=== PATIENT | female | born 1970 | race Hispanic/Latino ===

== ENCOUNTER 2017-04-24 15:58 | Observation (INO) | payer MEDICAID ==
[2017-04-24 16:54] VITALS: BMI 26.0
[2017-04-24] MEDS ORDERED: Morphine 4 mg/ml ISec IVP STA (17:09)
[2017-04-24] MEDS ORDERED: Sodium Chloride 0.9% 1,000 ML IV STA (17:10)
--- NOTE | 2017-04-24 17:41 | ED PDOC ---
Arrival/HPI - General Chief Complaint: Dizziness/Lightheaded Time Seen by Provider: 04/24/17 16:32 Historian: Patient, Family, EMS - History of Present Illness Narrative History of Present Illness (Text): 04/24/17 17:05 Karma Delgado is a 46 year old female, whose past medical history includes breast cancer, vulva cancer, rectal cancer (all in remission), post multiple surgery with chronic sciatica, as well as intermediate paresthesia in her upper and lower extremities, is brought in to the Emergency department by EMS complaining of dizziness. She reports that she was walking with her around 14:30 today when she suddenly felt dizzy as if she was about to pass out. She then felt a tingling sensation in all her extremities bilaterally, along with chest discomfort later on. EMS reports when they arrived the patient was hyperventilating. Patient notes that currently her right side feels normal, but still feels a tingling sensation on her left, which she also associates with pain. She also reports feeling mild nausea and mild shortness of breath. Patient denies chest pain, headache, fever, chills, cough, back pain, vomiting, diarrhea, abdominal pain, or other complaints. Time/Duration: 1-3 hours Symptom Onset: Sudden Symptom Course: Other (improvement with right side. Unchanged with left side. ) Activities at Onset: Light Modifying Factors (Text): None Context: Walking Associated Symptoms (Text): tingling in all extremities bilaterally, mild nausea, and mild shortness of breath Past Medical History - Provider Review Nursing Documentation Reviewed: Yes - Past History Past History: No Previous - Infectious Disease Hx of Infectious Diseases: None - Tetanus Immunization Tetanus Immunization: Unknown - Cardiac Hx Cardiac Disorders: No - Pulmonary Hx Respiratory Disorders: No - Neurological Hx Neurological Disorder: No - HEENT Hx HEENT Disorder: No - Renal Hx Renal Disorder: No - Endocrine/Metabolic Hx Endocrine Disorders: No - Hematological/Oncological Hx Blood Disorders: Yes Hx Blood Transfusions: No Hx Blood Transfusion Reaction: No Hx Cancer: Yes (breast, vaginal, rectal) - Integumentary Hx Dermatological Disorder: No - Musculoskeletal/Rheumatological Hx Musculoskeletal Disorders: Yes Other/Comment: L LEG PAIN - Gastrointestinal Hx Gastrointestinal Disorders: No - Genitourinary/Gynecological Hx Genitourinary Disorders: Yes Other/Comment: VAGINAL/RECTAL CA - Psychiatric Hx Psychophysiologic Disorder: Yes Hx Anxiety: Yes Hx Depression: Yes Hx Emotional Abuse: No Hx Physical Abuse: No Hx Substance Use: Yes (CANNABIS) - Surgical History Hx Appendectomy: Yes Hx Breast Biopsy: Yes (left breast mastectomy) Hx Mastectomy: Yes (L) Hx Orthopedic Surgery: Yes (L FOOT) Other/Comment: VAGINAL/RECTAL R/T CA - Anesthesia Hx Anesthesia: Yes - Suicidal Assessment Feels Threatened In Home Enviroment: No Family/Social History - Physician Review Nursing Documentation Reviewed: Yes Family/Social History: Unknown Family HX Smoking Status: Heavy Smoker > 10 Cigarettes Daily Hx Alcohol Use: Yes (ON OCCASION) Hx Substance Use: Yes (CANNABIS) Substance used: MARIJUANA Hx Substance Use Treatment: No Allergies/Home Meds Allergies/Adverse Reactions: Allergies iodine Allergy (Verified 12/19/15 18:30) ITCHING ibuprofen [From Motrin] Adverse Reaction (Verified 12/19/15 18:30) VOMITING Home Medications: Home Meds Medication Instructions Recorded Confirmed Alprazolam [Xanax] 1 mg PO Q6 10/15/12 04/24/17 Cyclobenzaprine [Flexeril] 10 mg PRN 04/24/17 Escitalopram [Lexapro] 20 mg DAILY 04/24/17 04/24/17 buPROPion [Wellbutrin] 50 mg BID 04/24/17 04/24/17 traZODone [Desyrel] 100 mg DAILY 04/24/17 04/24/17 Review of Systems - Review of Systems Constitutional: absent: Fevers Eyes: Normal ENT: Normal Respiratory: SOB (mild). absent: Cough Cardiovascular: absent: Chest Pain Gastrointestinal: Nausea (mild). absent: Abdominal Pain, Diarrhea Genitourinary Female: Normal Musculoskeletal: Normal. absent: Back Pain Skin: Normal Neurological: Dizziness. absent: Headache Endocrine: Normal Hemo/Lymphatic: Normal Psychiatric: Normal Physical Exam Vital Signs Reviewed: Yes Vital Signs Temp Pulse Resp BP Pulse Ox 04/24/17 16:08 97.6 F 62 20 121/71 100 Temperature: Afebrile Blood Pressure: Normal Pulse: Regular Respiratory Rate: Normal Appearance: Positive for: Non-Toxic Pain Distress: None Mental Status: Positive for: Alert and Oriented X 3 - Systems Exam Head: Present: Atraumatic, Normocephalic Pupils: Present: PERRL Extroacular Muscles: Present: EOMI Conjunctiva: Present: Normal Mouth: Present: Moist Mucous Membranes Pharnyx: Present: Normal. No: ERYTHEMA, EXUDATE Neck: Present: Normal Range of Motion Respiratory/Chest: Present: Clear to Auscultation, Good Air Exchange. No: Respiratory Distress, Accessory Muscle Use Cardiovascular: Present: Regular Rate and Rhythm, Normal S1, S2. No: Murmurs Abdomen: Present: Normal Bowel Sounds. No: Tenderness, Distention, Peritoneal Signs Upper Extremity: No: Cyanosis, Edema Lower Extremity: Present: Normal Inspection. No: Edema Neurological: Present: GCS=15, CN II-XII Intact, Speech Normal, Other (LLE 4/5 strength; LUE with drift but reported as baseline per patient.) Skin: Present: Warm, Dry, Normal Color. No: Rashes Psychiatric: Present: Alert, Oriented x 3, Normal Insight, Normal Concentration Medical Decision Making ED Course and Treatment: 04/24/17 17: Impression: 46 year old female with dizziness. Differential Diagnosis included but are not limited to: near syncopal episode vs panic vs dehydration vs acs vs electrolyte abnormality Plan: -- EKG -- CAT scan of Head without contrast -- Chest X-ray -- Labs -- Urinalysis -- Morphine, Xanax, and Sodium Chloride -- Reassess and disposition Progress Notes: EKG: Ordered, reviewed, and independently interpreted the EKG. Rate : 50 BPM Rhythm : Sinus bradycardia Interpretation : Inverted T waves in V2 and V3. Normal intervals. Normal axis compared to previous EKG. Comparison : 01/06/2016 04/24/17 18:[address] without contrast: Creator : Amado Espinoza MD COMPARISON: 10/31/2012 FINDINGS: HEMORRHAGE: No intracranial hemorrhage. BRAIN: No mass effect or edema. No atrophy or chronic microvascular ischemic changes. VENTRICLES: Unremarkable. No hydrocephalus. CALVARIUM: Unremarkable. PARANASAL SINUSES: Unremarkable as visualized. No significant inflammatory changes. MASTOID AIR CELLS: Unremarkable as visualized. No inflammatory changes. OTHER FINDINGS: None. IMPRESSION: No acute intracranial abnormalities. No significant findings to account for the clinical presentation. No significant interval change compared to the prior examination(s). 04/24/17 19:00 Chest X-ray: Creator : PAU TOSCANO MD COMPARISON: 12/19/2015. FINDINGS: LUNGS: The lungs are well inflated and clear PE PLEURA: No pneumothorax or pleural fluid seen. CARDIOVASCULAR: Normal. OSSEOUS STRUCTURES: No significant abnormalities. VISUALIZED UPPER ABDOMEN: Normal. OTHER FINDINGS: There are multiple surgical clips in the left axilla PICC IMPRESSION: No active pulmonary disease. 04/24/17 20:21 Patient with noted history. Neuro exam is baseline, per patient and given original b/L parasthesias, unlikely to be central neuro etiology. Labs are unremarkable but ekg is showing changes. Given cancer history, d-dimer sent and also found to be negative. With EKG changes, patient will need further observation on tele for near syncope. Disucssed with Dr. Molina, who said to place on the hospitalist service. Discussed with Dr. Walls. - Lab Interpretations Lab Results: 04/24/17 18:00 04/24/17 18:00 Lab Results 04/24/17 18:15: Urine Opiates Screen Negative, Urine Methadone Screen Negative, Ur Barbiturates Screen Negative, Ur Phencyclidine Scrn Negative, Ur Amphetamines Screen Negative, U Benzodiazepines Scrn Positive H, U Oth Cocaine Metabols Negative, U Cannabinoids Screen Positive H 04/24/17 18:15: Urine Color Yellow, Urine Appearance Clear, Urine pH 7.0, Ur Specific [place] 1.010, Urine Protein Negative, Urine Glucose (UA) Negative, Urine Ketones Negative, Urine Blood Trace-intact H, Urine Nitrate Negative, Urine Bilirubin Negative, Urine Urobilinogen 0.2, Ur Leukocyte Esterase Negative , Urine RBC 0 - 2, Urine WBC 0 - 2, Ur Epithelial Cells 1 - 3 04/24/17 18:00: Sodium 140, Potassium 3.8, Chloride 103, Carbon Dioxide 26, Anion Gap 15, BUN 9, Creatinine 0.8, Est GFR ( Amer) > 60, Est GFR (Non- Af Amer) > 60, Random Glucose 89, Calcium 10.5, Magnesium 1.7, Total Bilirubin 0.8, AST 27, ALT 23, Alkaline Phosphatase 98, Lactate Dehydrogenase 424, Total Creatine Kinase 68, Troponin I < 0.01, NT-Pro-B Natriuret Pep 149, Total Protein 8.4 H, Albumin 4.7, Globulin 3.7, Albumin/Globulin Ratio 1.3, Lipase 125 04/24/17 18:00: PT 11.3, INR 1.05, APTT 26.0, D-Dimer, Quantitative 0.30 04/24/17 18:00: WBC 7.0, RBC 4.20, Hgb 13.2, Hct 37.8, MCV 90.0, MCH 31.4, MCHC 34.9, RDW 12.5, Plt Count 203, MPV 9.5, Gran % 77.4 H, Lymph % (Auto) 16.0 L, [place] % (Auto) 5.8, Eos % (Auto) 0.7 L, Baso % (Auto) 0.1, Gran # 5.42, Lymph # 1.1 L, [place] # 0.4, Eos # 0.1, Baso # 0.01 I have reviewed the lab results: Yes - RAD Interpretation Radiology Orders: 04/24/17 17:12 Brain [HEAD W/O CONTRAST] [CT] Stat CHEST ONE VIEW [RAD] Stat Top Precipitator Operator: Radiologist - EKG Interpretation Interpreted by ED Physician: Yes Type: 12 lead EKG - Medication Orders Current Medication Orders: Discontinued Medications Alprazolam (Xanax) 1 mg PO ONCE STA PRN Reason: Protocol Stop: 04/24/17 17:11 Last Admin: 04/24/17 18:05 Dose: 1 mg Sodium Chloride (Sodium Chloride 0.9%) 1,000 mls @ 999 mls/hr IV .Q1H1M STA Stop: 04/24/17 18:10 Last Admin: 04/24/17 18:05 Dose: 999 mls/hr Morphine Sulfate (Morphine) 4 mg IVP STAT STA Stop: 04/24/17 17:10 Last Admin: 04/24/17 18:00 Dose: 4 mg Ondansetron HCl (Zofran Inj) 4 mg IVP STAT STA Stop: 04/24/17 17:58 Last Admin: 04/24/17 18:06 Dose: 4 mg Ondansetron HCl (Zofran Inj) Confirm Administered Dose 4 mg .ROUTE .STK-MED ONE Stop: 04/24/17 17:58 Last Admin: 04/24/17 18:07 Dose: - PA / BONDERITE OPERATOR / Resident Statement / has reviewed & agrees with the documentation as recorded. / has examined the patient and agrees with the treatment plan. - Scribe Statement The provider has reviewed the documentation as recorded by the Scribe 04/24/2017 [facility] Provider Scribe Attestation: All medical record entries made by the Scribe were at my direction and personally dictated by me. I have reviewed the chart and agree that the record accurately reflects my personal performance of the history, physical exam, medical decision making, and the department course for this patient. I have also personally directed, reviewed, and agree with the discharge instructions and disposition. Disposition/Present on Arrival - Present on Arrival Any Indicators Present on Arrival: No History of DVT/PE: No History of Uncontrolled Diabetes: No Urinary Catheter: No History of Decub. Ulcer: No History Surgical Site Infection Following: None - Disposition Have Diagnosis and Disposition been Completed?: Yes Diagnosis: Near syncope Disposition: HOSPITALIZED Disposition Time: 19:25 Patient Plan: Observation, Telemetry Condition: FAIR
[2017-04-24 18:21] LABS: ALB/GLOB RATIO 1.3 (1.1-1.8); ALBUMIN 4.7 g/dL (3.0-4.8); ALT/SGPT 23 U/L (7-56); AST/SGOT 27 U/L (15-39); BLOOD UREA NITROGEN 9 mg/dL (7-21); CALCIUM 10.5 mg/dL (8.4-10.5); GFR AFRICAN-AMERICAN > 60; GFR NON-AFRICAN AMERICAN > 60; LIPASE 125 U/L (23-300); MAGNESIUM 1.7 mg/dL (1.7-2.2)
[2017-04-24 18:29] LABS: INR 1.05 (0.93-1.08); PROTHROMBIN TIME 11.3 Seconds (9.9-11.8)
[2017-04-24 18:31] LABS: D DIMER 0.3 mg/L FEU (0-0.50)
[2017-04-24 18:32] LABS: BASO # 0.01 K/mm3 (0.0-2.0); BASO % 0.1 % (0.0-3.0); EOS # 0.1 (0.0-0.7); EOS % 0.7 % (1.5-5.0); GRAN # 5.42 (1.4-6.5); GRAN % 77.4 % (50.0-68.0); HEMOGLOBIN 13.2 gm/dL (12.0-16.0); LYMPH # 1.1 (1.2-3.4); MEAN CORPUSCULAR HEMOGLOBIN 31.4 pg (25.0-35.0); MEAN CORPUSCULAR HGB CONC 34.9 g/dl (31.0-37.0); MEAN PLATELET VOLUME 9.5 fl (7.0-11.0); MONO # 0.4 (0.1-0.6); MONO % 5.8 % (1.0-6.0); PLATELET COUNT 203 10^3/uL (120.0-450.0); RED CELL DISTRIBUTION WIDTH 12.5 % (11.5-14.5)
[2017-04-24 18:33] LABS: B-TYPE NATRIURETIC PEPTIDE 149 pg/mL (0-450)
[2017-04-24 18:37] LABS: TROPONIN I < 0.01 ng/mL
--- NOTE | 2017-04-24 18:41 | CT ---
PROCEDURE: CT HEAD WITHOUT CONTRAST. HISTORY: dizzy, L side parasthesias COMPARISON: 10/31/2012 TECHNIQUE: Axial computed tomography images were obtained through the head/brain without intravenous contrast. Radiation dose: Total exam DLP = 733.34 mGy-cm. This CT exam was performed using one or more of the following dose reduction techniques: Automated exposure control, adjustment of the mA and/or kV according to patient size, and/or use of iterative reconstruction technique. FINDINGS: HEMORRHAGE: No intracranial hemorrhage. BRAIN: No mass effect or edema. No atrophy or chronic microvascular ischemic changes. VENTRICLES: Unremarkable. No hydrocephalus. CALVARIUM: Unremarkable. PARANASAL SINUSES: Unremarkable as visualized. No significant inflammatory changes. MASTOID AIR CELLS: Unremarkable as visualized. No inflammatory changes. OTHER FINDINGS: None. IMPRESSION: No acute intracranial abnormalities. No significant findings to account for the clinical presentation. No significant interval change compared to the prior examination(s).
--- NOTE | 2017-04-24 18:55 | RAD ---
PROCEDURE: CHEST RADIOGRAPH, 1 VIEW HISTORY: Shortness of breath COMPARISON: 12/19/2015. FINDINGS: LUNGS: The lungs are well inflated and clear PE PLEURA: No pneumothorax or pleural fluid seen. CARDIOVASCULAR: Normal. OSSEOUS STRUCTURES: No significant abnormalities. VISUALIZED UPPER ABDOMEN: Normal. OTHER FINDINGS: There are multiple surgical clips in the left axilla PICC IMPRESSION: No active pulmonary disease.
[2017-04-24 18:57] LABS: URINE BILIRUBIN NEGATIVE (NEGATIVE); URINE BLOOD TRACE-INTACT (NEGATIVE); URINE GLUCOSE (UA) NEGATIVE (NEGATIVE); URINE LEUKOCYTE ESTERASE NEGATIVE Leu/uL (NEGATIVE); URINE NITRATE NEGATIVE (NEGATIVE); URINE PROTEIN NEGATIVE mg/dL (<30 mg/dL); URINE UROBILINOGEN 0.2 E.U./dL (<1 E.U./dL)
[2017-04-24 19:07] LABS: URINE APPEARANCE CLEAR (CLEAR); URINE COLOR YELLOW (YELLOW)
[2017-04-24 19:08] LABS: URINE RBC 0 - 2 /hpf (0-2); URINE WBC 0 - 2 /hpf (0-6)
[2017-04-24 19:15] LABS: BARBITURATES, UR NEGATIVE (NEGATIVE); BENZODIAZEPINES, UR POSITIVE (NEGATIVE); OPIATES, UR NEGATIVE (NEGATIVE); PHENCYCLIDINE, UR NEGATIVE (NEGATIVE)
--- NOTE | 2017-04-24 19:58 | CP.PCM.HP ---
<Deon Diaz - Last Filed: 04/25/17 00:01> History of Present Illness - History of Present Illness History of Present Illness: CC: SOB and Dizzy Patient is a 46 year female with a PMHx of breast cancer, vulva cancer , rectal cancer, ovarian cysts, depression, anxiety, and sciatic pain who presents to the ED for evaluation of dizziness which began this afternoon while walking with her with no specific provoking event. Patient states that she felt her surroundings spinning with associated nausea and SOB, which have resolved since onset. She states that she experiences episodes of anxiety induced vertigo and SOB in the past and generally uses her xanax for relief. Patient also admits to intermittent left sided chest pain, which is described as being a pressure and is chronic in nature secondary to radiation. Additionally she experiences right chest pain for the past week which she believes a secondary to a strain after sitting in su at restaurant. Patient also admits to tingling sensation on her bilateral upper and lower extremities during which has resolved since onset. Also states she experienced one bout of nonbloody emesis in ED. Denies fever, chills, abdominal pain, diarrhea, constipation, and urinary symptoms. PMHx: breast cancer, vulva cancer, rectal cancer, ovarian cysts, depression, anxiety, sciatic pain PSHx: appendectomy, L foot tendon repair, L sided mastectomy, vulvolectomy, cervix removed (trachelectomy), 8 laproscopy 2/2 ovarian cyst removal Social Hx: occasional ETOH use, 8-10 cigarette/day for 20 years, marijuana 3x/ week Family Hx: mother- skin cancer, father- brain cancer, brother- Burkitts lymphoma Allergies: IV contrast hives, Motrin Present on Admission - Present on Admission Any Indicators Present on Admission: No Review of Systems - Review of Systems Review of Systems: 12 point review of systems negative except for as indicated in the HPI Past Patient History - Infectious Disease Hx of Infectious Diseases: None - Tetanus Immunizations Tetanus Immunization: Unknown - Past Medical History & Family History Past Medical History?: Yes - Past Social History Smoking Status: Heavy Smoker > 10 Cigarettes Daily - CARDIAC Hx Cardiac Disorders: No - PULMONARY Hx Respiratory Disorders: No - NEUROLOGICAL Hx Neurological Disorder: No - HEENT Hx HEENT Problems: No - RENAL Hx Chronic Kidney Disease: No - ENDOCRINE/METABOLIC Hx Endocrine Disorders: No - HEMATOLOGICAL/ONCOLOGICAL Hx Blood Disorders: Yes Hx Blood Transfusions: No Hx Blood Transfusion Reaction: No Hx Cancer: Yes (breast, vaginal, rectal) - INTEGUMENTARY Hx Dermatological Problems: No - MUSCULOSKELETAL/RHEUMATOLOGICAL Hx Musculoskeletal Disorders: Yes Other/Comment: L LEG PAIN - GASTROINTESTINAL Hx Gastrointestinal Disorders: No - GENITOURINARY/GYNECOLOGICAL Hx Genitourinary Disorders: Yes Other/Comment: VAGINAL/RECTAL CA - PSYCHIATRIC Hx Psychophysiologic Disorder: Yes Hx Anxiety: Yes Hx Depression: Yes Hx Emotional Abuse: No Hx Physical Abuse: No Hx Substance Use: Yes (CANNABIS) - SURGICAL HISTORY Hx Appendectomy: Yes Hx Breast Biopsy: Yes (left breast mastectomy) Hx Mastectomy: Yes (L) Hx Orthopedic Surgery: Yes (L FOOT) Other/Comment: VAGINAL/RECTAL R/T CA - ANESTHESIA Hx Anesthesia: Yes Meds Allergies/Adverse Reactions: Allergies Allergy/AdvReac Type Severity Reaction Status Date / Time iodine Allergy ITCHING Verified 04/24/17 21:36 ibuprofen [From Motrin] AdvReac VOMITING Verified 04/24/17 21:36 Physical Exam - Constitutional Appears: Non-toxic - Head Exam Head Exam: NORMAL INSPECTION - Eye Exam Eye Exam: EOMI, Normal appearance, PERRL - ENT Exam ENT Exam: Mucous Membranes Moist - Neck Exam Neck exam: Positive for: Normal Inspection. Negative for: Tenderness - Respiratory Exam Respiratory Exam: Clear to Auscultation Bilateral, NORMAL BREATHING PATTERN. absent: Accessory Muscle Use, Rales, Rhonchi, Wheezes - Cardiovascular Exam Cardiovascular Exam: Bradycardia, REGULAR RHYTHM, +S1, +S2 - GI/Abdominal Exam GI & Abdominal Exam: Normal Bowel Sounds, Soft. absent: Distended, Guarding, Rebound, Rigid - Extremities Exam Extremities exam: Positive for: normal inspection, pedal pulses present. Negative for: tenderness - Back Exam Back exam: NORMAL INSPECTION. absent: CVA tenderness (L), CVA tenderness (R) - Neurological Exam Neurological exam: CN II-XII Intact, Oriented x3 Additional comments: Patient is awake, alert, responds to verbal stimuli, and moves upper extremities past midline Sensation is intact to touch throughout 5/5 muscle strength bilateral upper extremities and right lower extremity Movement of the left lower extremity is guarded 2/2 to pain - Psychiatric Exam Psychiatric exam: Normal Affect, Normal Mood - Skin Skin Exam: Intact, Normal Color, Warm Results - Vital Signs Recent Vital Signs: Last Vital Signs Temp 97.6 F 04/24/17 16:08 Pulse 62 04/24/17 16:08 Resp 20 04/24/17 16:08 BP 121/71 04/24/17 16:08 Pulse Ox 100 04/24/17 16:08 - Labs Result Diagrams: 04/24/17 18:00 04/24/17 18:00 Labs: Laboratory Results - last 24 hr 04/24/17 04/24/17 04/24/17 18:00 18:00 18:00 WBC 7.0 RBC 4.20 Hgb 13.2 Hct 37.8 MCV 90.0 MCH 31.4 MCHC 34.9 RDW 12.5 Plt Count 203 MPV 9.5 Gran % 77.4 H Lymph % (Auto) 16.0 L [place] % (Auto) 5.8 Eos % (Auto) 0.7 L Baso % (Auto) 0.1 Gran # 5.42 Lymph # 1.1 L [place] # 0.4 Eos # 0.1 Baso # 0.01 PT 11.3 INR 1.05 APTT 26.0 D-Dimer, Quantitative 0.30 Sodium 140 Potassium 3.8 Chloride 103 Carbon Dioxide 26 Anion Gap 15 BUN 9 Creatinine 0.8 Est GFR ( Amer) > 60 Est GFR (Non-Af Amer) > 60 Random Glucose 89 Calcium 10.5 Magnesium 1.7 Total Bilirubin 0.8 AST 27 ALT 23 Alkaline Phosphatase 98 Lactate Dehydrogenase 424 Total Creatine Kinase 68 Troponin I < 0.01 NT-Pro-B Natriuret Pep 149 Total Protein 8.4 H Albumin 4.7 Globulin 3.7 Albumin/Globulin Ratio 1.3 Lipase 125 Urine Color Urine Appearance Urine pH Ur Specific [place] Urine Protein Urine Glucose (UA) Urine Ketones Urine Blood Urine Nitrate Urine Bilirubin Urine Urobilinogen Ur Leukocyte Esterase Urine RBC Urine WBC Ur Epithelial Cells Urine Opiates Screen Urine Methadone Screen Ur Barbiturates Screen Ur Phencyclidine Scrn Ur Amphetamines Screen U Benzodiazepines Scrn U Oth Cocaine Metabols U Cannabinoids Screen 04/24/17 04/24/17 18:15 18:15 WBC RBC Hgb Hct MCV MCH MCHC RDW Plt Count MPV Gran % Lymph % (Auto) [place] % (Auto) Eos % (Auto) Baso % (Auto) Gran # Lymph # [place] # Eos # Baso # PT INR APTT D-Dimer, Quantitative Sodium Potassium Chloride Carbon Dioxide Anion Gap BUN Creatinine Est GFR ( Amer) Est GFR (Non-Af Amer) Random Glucose Calcium Magnesium Total Bilirubin AST ALT Alkaline Phosphatase Lactate Dehydrogenase Total Creatine Kinase Troponin I NT-Pro-B Natriuret Pep Total Protein Albumin Globulin Albumin/Globulin Ratio Lipase Urine Color Yellow Urine Appearance Clear Urine pH 7.0 Ur Specific [place] 1.010 Urine Protein Negative Urine Glucose (UA) Negative Urine Ketones Negative Urine Blood Trace-intact H Urine Nitrate Negative Urine Bilirubin Negative Urine Urobilinogen 0.2 Ur Leukocyte Esterase Negative Urine RBC 0 - 2 Urine WBC 0 - 2 Ur Epithelial Cells 1 - 3 Urine Opiates Screen Negative Urine Methadone Screen Negative Ur Barbiturates Screen Negative Ur Phencyclidine Scrn Negative Ur Amphetamines Screen Negative U Benzodiazepines Scrn Positive H U Oth Cocaine Metabols Negative U Cannabinoids Screen Positive H Assessment & Plan - Assessment and Plan (Free Text) Assessment: Patient is a 46 year female with a PMHx of breast cancer, vulva cancer , rectal cancer, ovarian cysts, depression, anxiety, and sciatic pain who is being admitted for evaluation and treatment of dizziness induced by her hyperventilation secondary to her anxiety. 1. Hyperventilation likely 2/2 Anxiety vs Panic Attack - monitor closely - continue home alprazolam 2. Chest Pain - reproducible on palpation on the left anterior chest wall likely musculoskeletal in nature, Tylenol PRN - right sided chest pain is chronic in nature 2/2 to scar tissue from radiation therapy from breast cancer - rule out ACS- troponin stat q4 x 3 - EKG reviewed 3. Sciatia, Gait Dysfunction - high risk fall precautions - PT - OT - pain control valium 10mg one time for pain control - suggest outpatient gabapentin as this may cause the hyperventilation and dizziness 4. Depression, Anxiety - continue home lexapro, wellbutrin, alprazolam 5. Insomnia - continue home trazodone 6. History of Breast, Vulvular, and Rectal Cancer - follow up outpatient 7. PPx - Subq Heparin - Protonix - patient seen, evaluated, and discussed with attending, Dr. Walls. <Henri Walls P - Last Filed: 04/25/17 06:17> Results - Vital Signs Recent Vital Signs: Last Vital Signs Temp 97.7 F 04/25/17 00:01 Pulse 42 L 04/25/17 02:00 Resp 19 04/25/17 00:01 BP 91/50 L 04/25/17 00:01 Pulse Ox 99 04/25/17 00:01 - Labs Result Diagrams: 04/24/17 18:00 04/24/17 18:00 Labs: Laboratory Results - last 24 hr 04/24/17 23:45 Troponin I < 0.01 Attending/Attestation - Attestation I have personally seen and examined this patient.: Yes I have fully participated in the care of the patient.: Yes I have reviewed all pertinent clinical information: Yes Notes (Text): 04/25/17 06:12 46 F with h/o chronic neuropathic pain post cancer surg in left chest, left thigh, h/o anxiety, pannic disorder, hyperventilation associated with anxiety of activity, had an episode yesterday while walking with the , became hyperventilating, then felt numbness in the whole body, sensation of weakness and passing out. The patient improved while in the hospital except chronic pain. Patient being treated for anxiety with antidrepressent meds, for pannic with xanax, also discussed to control neuropathic pain could try gabapentin gradually titrating to response, her meds being managed by her primary team and would discuss for out patient. Bradycardia and non specific twave changes noticed on EKG, patient's cp was completely reproducible though.
[2017-04-25] MEDS ORDERED: Pneumococcal 23-Valent Vaccine IM ONE (00:01)
[2017-04-25 00:46] VITALS: O2SAT 99
[2017-04-25] MEDS ORDERED: Pantoprazole 40 mg EC Tab PO SCH (06:00)
[2017-04-25 07:13] LABS: BASO # 0.02 K/mm3 (0.0-2.0); BASO % 0.4 % (0.0-3.0); EOS # 0.1 (0.0-0.7); EOS % 2.3 % (1.5-5.0); GRAN % 61.8 % (50.0-68.0); HEMOGLOBIN 12.3 gm/dL (12.0-16.0); LYMPH # 1.5 (1.2-3.4); LYMPH % 28.6 % (22.0-35.0); MEAN CELL VOLUME 92.7 fL (80.0-105.0); MEAN CORPUSCULAR HEMOGLOBIN 30.8 pg (25.0-35.0); MEAN CORPUSCULAR HGB CONC 33.2 g/dl (31.0-37.0); MEAN PLATELET VOLUME 9.4 fl (7.0-11.0); MONO # 0.4 (0.1-0.6); MONO % 6.9 % (1.0-6.0); PLATELET COUNT 196 10^3/uL (120.0-450.0); RBC 3.99 10^6/uL (3.5-6.1); RED CELL DISTRIBUTION WIDTH 12.9 % (11.5-14.5); WHITE BLOOD COUNT 5.2 10^3/ul (4.5-11.0)
[2017-04-25 07:42] LABS: ALB/GLOB RATIO 1.1 (1.1-1.8); ALBUMIN 3.9 g/dL (3.0-4.8); ALT/SGPT 22 U/L (7-56); AST/SGOT 23 U/L (15-39); BLOOD UREA NITROGEN 8 mg/dL (7-21); CALCIUM 9.4 mg/dL (8.4-10.5); GFR AFRICAN-AMERICAN > 60; GFR NON-AFRICAN AMERICAN > 60
[2017-04-25 07:45] LABS: TROPONIN I < 0.01 ng/mL
--- NOTE | 2017-04-25 10:19 | CP.PCM.PN ---
Subjective - Date & Time of Evaluation Date of Evaluation: 04/25/17 Time of Evaluation: 09:30 - Subjective Subjective: Pt s&e at bedside. She states that her pain is better, but that she is still having L sided LE 'sciatica' and that her CP is resolving. Patient further states that she is feeling better after getting xanax. Patient is ready for d/ c Objective - Vital Signs/Intake and Output Vital Signs (last 24 hours): Temp Pulse Resp BP Pulse Ox 97.6 F 71 20 99/57 L 99 04/25/17 06:00 04/25/17 06:00 04/25/17 06:00 04/25/17 06:00 04/25/17 06:00 Intake and Output: 04/25/17 04/25/17 06:59 18:59 Intake Total 700 Output Total 900 Balance -200 - Medications Medications: Current Medications Acetaminophen (Tylenol 325mg Tab) 650 mg PO Q6H PRN PRN Reason: Pain, moderate (4-7) Last Admin: 04/25/17 06:09 Dose: 650 mg Alprazolam (Xanax) 1 mg PO Q6 [facility] Last Admin: 04/25/17 00:42 Dose: Not Given Bupropion HCl (Wellbutrin) 50 mg PO BID [facility] Escitalopram Oxalate (Lexapro) 20 mg PO DAILY [facility] Heparin Sodium (Porcine) (Heparin) 5,000 units SC Q8 JOHNY PRN Reason: Protocol Last Admin: 04/25/17 06:09 Dose: 5,000 units Pantoprazole Sodium (Protonix Ec Tab) 40 mg PO 0600 [facility] Last Admin: 04/25/17 06:09 Dose: 40 mg Trazodone HCl (Desyrel) 100 mg PO HS [facility] - Labs Labs: 04/25/17 06:30 04/25/17 06:30 PT 11.3 Seconds (9.9-11.8) 04/24/17 18:00 INR 1.05 (0.93-1.08) 04/24/17 18:00 APTT 26.0 Seconds (23.7-30.8) 04/24/17 18:00 - Additional Findings Additional findings: Const: nad, a&o X 4 Eyes: EMOI, PERRL Nose: no deviation, no drainage Throat: no erythema, no drainage Cardio: +reproducible right sided CP; rrr, no m/r/g Pulm: ctab Abd: s/nt/nd, nbs X 4q Extremities: +L LE TTP proximal to knee; no calf tenderness, no swelling, no edema b/l Neuro: CN II-XII intact grossly Assessment and Plan - Assessment and Plan (Free Text) Assessment: Patient is a 46 year female with a PMHx of breast cancer, vulva cancer , rectal cancer, ovarian cysts, depression, anxiety, and sciatic pain who is being admitted for evaluation and treatment of dizziness induced by her hyperventilation secondary to her anxiety. 1. Hyperventilation likely 2/2 Anxiety vs Panic Attack - monitor closely - continue zofran prn - continue home alprazolam 2. Chest Pain - reproducible on palpation on the left anterior chest wall likely musculoskeletal in nature, Tylenol PRN - right sided chest pain is chronic in nature 2/2 to scar tissue from radiation therapy from breast cancer - rule out ACS- troponin stat q4 x 3 - EKG reviewed 3. Sciatia, Gait Dysfunction - high risk fall precautions - PT/OT - pain control valium 10mg one time for pain control 4. Depression, Anxiety - continue home lexapro, wellbutrin, alprazolam 5. Insomnia - continue home trazodone 6. History of Breast, Vulvular, and Rectal Cancer - follow up outpatient 7. PPx - Subq Heparin - Protonix
[2017-04-25 12:01] VITALS: BP 107/67; RESP 16; TEMP 97.7
--- NOTE | 2017-04-25 12:38 | CARD ---
APPROVED REPORT EKG Measurement Heart [id number] <Conclusion> Sinus bradycardia T wave abnormality, consider anterior ischemia Abnormal ECG
[2017-04-25 14:39] LABS: FREE T4 0.78 ng/dL (0.78-2.19)
[2017-04-25] MEDS ORDERED: Oxycodone/Acetaminophen 5/325 mg Tab PO PRN (16:27)
[2017-04-25] MEDS ORDERED: Naproxen 275 mg Tab PO SCH (18:00)
[2017-04-25 19:11] VITALS: PULSE 57
--- NOTE | 2017-04-25 19:29 | CARD ---
APPROVED REPORT EXAM: Two-dimensional and M-mode echocardiogram with Doppler and color Doppler. INDICATION Syncope 2D DIMENSIONS Left Atrium (2D)3.2 (1.6-4.0cm)IVSd0.8 (0.7-1.1cm) LVDd5.2 (3.9-5.9cm)PWd1.0 (0.7-1.1cm) LVDs3.1 (2.5-4.0cm)FS (%) 39.9 % LVEF (%)54.0 (>50%) M-Mode DIMENSIONS Aortic Root2.60 (2.2-3.7cm)Aortic Cusp Exc.1.70 (1.5-2.0cm) Aortic Valve AoV Peak Yxbvykgp325.0cm/Eleanor Peak GR.10mmHg Mitral Valve MV E Neagnkqx12.3cm/sMV A Jgwztlrm76.1cm/sE/A ratio1.6 TDI E/Lateral E'0.0E/Medial E'0.0 Tricuspid Valve TR Peak Elffuvzs350yk/sRAP [id number] Peak Gr.9mmHg [id number] LEFT VENTRICLE The left ventricle is normal size. There is normal left ventricular wall thickness. The left ventricular function is normal. The left ventricular ejection fraction is within the normal range. There is normal LV segmental wall motion. The left ventricular diastolic function is normal. RIGHT VENTRICLE The right ventricle is normal size. There is normal right ventricular wall thickness. The right ventricular systolic function is normal. ATRIA The left atrium size is normal. The right atrium size is normal. AORTIC VALVE The aortic valve is normal in structure. No aortic regurgitation is present. MITRAL VALVE The mitral valve is normal in structure. There is no mitral valve regurgitation noted. TRICUSPID VALVE The tricuspid valve is normal in structure. There is no tricuspid valve regurgitation noted. GREAT VESSELS The aortic root is normal in size. The IVC is normal in size and collapses >50% with inspiration. PERICARDIAL EFFUSION There is no pericardial effusion. <Conclusion> The left ventricle is normal size. There is normal left ventricular wall thickness. The left ventricular function is normal. The left ventricular ejection fraction is within the normal range. There is normal LV segmental wall motion. The left ventricular diastolic function is normal.
--- NOTE | 2017-04-26 02:07 | CON ---
DATE OF CONSULTATION: 04/25/2017 HISTORY OF PRESENT ILLNESS: The patient is a 46-year-old woman with multiple musculoskeletal pain issues for which she is on multiple pain medications, who presents with intermittent dizziness. She is found at rest to have a resting heart rate in the low 50s. PAST MEDICAL HISTORY: The patient's past medical history is free of cardiac disease. She denies history of chest pain or shortness of breath. SOCIAL HISTORY: The patient does smoke. REVIEW OF SYSTEMS: A 14-point review of systems was reviewed in detail. No cardiac symptomatology is noted. However, discussed her diet in which the patient did not eat all day yesterday. PHYSICAL EXAMINATION: VITAL SIGNS: Vital signs are stable. Heart rate is in the 50s with appropriate increase in ambulation. NECK: Negative JVD. LUNGS: Without rales. HEART: S1, S2. EXTREMITIES: Without edema. EKG shows a normal sinus rhythm with nonspecific ST-T changes. Echocardiogram is pending. Thyroid function has not been done. IMPRESSION: 1. Intermittent dizziness likely due to her poor diet with no intake over the last 24 hours. 2. Abnormal EKG with diffuse ST-T changes. 3. Active smoker. 4. Need to rule out hypothyroidism. Given these findings, we will increase p.o. intake. Check TFTs. I have discussed with the patient about the need to stop smoking as well as to change her dietary habits. Escobar Acosta MD
--- NOTE | 2017-04-26 23:15 | CP.PCM.DIS ---
Provider - Provider Date of Admission: 04/24/17 19:46 Attending physician: Makayla Medina MD Primary care physician: NO PRIMARY CARE PROVIDER Time Spent in preparation of Discharge (in minutes): 45 Hospital Course - Lab Results Lab Results: Most Recent Lab Values WBC 5.2 10^3/ul (4.5-11.0) D 04/25/17 06:30 RBC 3.99 10^6/uL (3.5-6.1) 04/25/17 06:30 Hgb 12.3 gm/dL (12.0-16.0) 04/25/17 06:30 Hct 37.0 % (36.0-48.0) 04/25/17 06:30 MCV 92.7 fL (80.0-105.0) 04/25/17 06:30 MCH 30.8 pg (25.0-35.0) 04/25/17 06:30 MCHC 33.2 g/dl (31.0-37.0) 04/25/17 06:30 RDW 12.9 % (11.5-14.5) 04/25/17 06:30 Plt Count 196 10^3/uL (120.0-450.0) 04/25/17 06:30 MPV 9.4 fl (7.0-11.0) 04/25/17 06:30 Gran % 61.8 % (50.0-68.0) 04/25/17 06:30 Lymph % (Auto) 28.6 % (22.0-35.0) 04/25/17 06:30 [place] % (Auto) 6.9 % (1.0-6.0) H 04/25/17 06:30 Eos % (Auto) 2.3 % (1.5-5.0) 04/25/17 06:30 Baso % (Auto) 0.4 % (0.0-3.0) 04/25/17 06:30 Gran # 3.20 (1.4-6.5) 04/25/17 06:30 Lymph # 1.5 (1.2-3.4) 04/25/17 06:30 [place] # 0.4 (0.1-0.6) 04/25/17 06:30 Eos # 0.1 (0.0-0.7) 04/25/17 06:30 Baso # 0.02 K/mm3 (0.0-2.0) 04/25/17 06:30 PT 11.3 Seconds (9.9-11.8) 04/24/17 18:00 INR 1.05 (0.93-1.08) 04/24/17 18:00 APTT 26.0 Seconds (23.7-30.8) 04/24/17 18:00 D-Dimer, Quantitative 0.30 mg/L FEU (0-0.50) 04/24/17 18:00 Sodium 141 mmol/L (132-148) 04/25/17 06:30 Potassium 4.0 mmol/L (3.6-5.0) 04/25/17 06:30 Chloride 102 mmol/L (98-107) 04/25/17 06:30 Carbon Dioxide 29 mmol/L (21-33) 04/25/17 06:30 Anion Gap 14 (10-20) 04/25/17 06:30 BUN 8 mg/dL (7-21) 04/25/17 06:30 Creatinine 0.8 mg/dL (0.5-1.4) 04/25/17 06:30 Est GFR ( Amer) > 60 04/25/17 06:30 Est GFR (Non-Af Amer) > 60 04/25/17 06:30 Random Glucose 83 mg/dL (70-110) 04/25/17 06:30 Calcium 9.4 mg/dL (8.4-10.5) 04/25/17 06:30 Magnesium 1.7 mg/dL (1.7-2.2) 04/24/17 18:00 Total Bilirubin 0.6 mg/dL (0.2-1.3) 04/25/17 06:30 AST 23 U/L (15-39) 04/25/17 06:30 ALT 22 U/L (7-56) 04/25/17 06:30 Alkaline Phosphatase 77 U/L (38-133) 04/25/17 06:30 Lactate Dehydrogenase 424 U/L (333-699) 04/24/17 18:00 Total Creatine Kinase 68 U/L (35-230) 04/24/17 18:00 Troponin I < 0.01 ng/mL 04/25/17 06:30 NT-Pro-B Natriuret Pep 149 pg/mL (0-450) 04/24/17 18:00 Total Protein 7.3 g/dL (5.8-8.3) 04/25/17 06:30 Albumin 3.9 g/dL (3.0-4.8) 04/25/17 06:30 Globulin 3.4 gm/dL 04/25/17 06:30 Albumin/Globulin Ratio 1.1 (1.1-1.8) 04/25/17 06:30 Lipase 125 U/L (23-300) 04/24/17 18:00 Free T4 0.78 ng/dL (0.78-2.19) 04/25/17 14:13 TSH 3rd Generation 7.41 mIU/mL (0.46-4.68) H 04/25/17 14:13 Urine Color Yellow (YELLOW) 04/24/17 18:15 Urine Appearance Clear (CLEAR) 04/24/17 18:15 Urine pH 7.0 (4.7-8.0) 04/24/17 18:15 Ur Specific [place] 1.010 (1.005-1.035) 04/24/17 18:15 Urine Protein Negative mg/dL (<30 mg/dL) 04/24/17 18:15 Urine Glucose (UA) Negative mg/dL (NEGATIVE) 04/24/17 18:15 Urine Ketones Negative mg/dL (NEGATIVE) 04/24/17 18:15 Urine Blood Trace-intact (NEGATIVE) H 04/24/17 18:15 Urine Nitrate Negative (NEGATIVE) 04/24/17 18:15 Urine Bilirubin Negative (NEGATIVE) 04/24/17 18:15 Urine Urobilinogen 0.2 E.U./dL (<1 E.U./dL) 04/24/17 18:15 Ur Leukocyte Esterase Negative [place]/uL (NEGATIVE) 04/24/17 18:15 Urine RBC 0 - 2 /hpf (0-2) 04/24/17 18:15 Urine WBC 0 - 2 /hpf (0-6) 04/24/17 18:15 Ur Epithelial Cells 1 - 3 /hpf (0-5) 04/24/17 18:15 Urine Opiates Screen Negative (NEGATIVE) 04/24/17 18:15 Urine Methadone Screen Negative (NEGATIVE) 04/24/17 18:15 Ur Barbiturates Screen Negative (NEGATIVE) 04/24/17 18:15 Ur Phencyclidine Scrn Negative (NEGATIVE) 04/24/17 18:15 Ur Amphetamines Screen Negative (NEGATIVE) 04/24/17 18:15 U Benzodiazepines Scrn Positive (NEGATIVE) H 04/24/17 18:15 U Oth Cocaine Metabols Negative (NEGATIVE) 04/24/17 18:15 U Cannabinoids Screen Positive (NEGATIVE) H 04/24/17 18:15 - Hospital Course Hospital Course: Admitting Physician: Dr. Walls Date of Admission: 04/24/2017 Discharge Physician: Dr. Torres Date of Discharge: 04/25/2017 Discharge Diagnoses: 1. Hyperventilation likely 2/2 Anxiety vs Panic Attack 2. Chest Pain 3. Sciatia, Gait Dysfunction 4. Depression, Anxiety 5. Insomnia 6. History of Breast, Vulvular, and Rectal Cancer Hospital Course: 46 year female with a PMHx of breast cancer, vulva cancer, rectal cancer, ovarian cysts, depression, anxiety, and sciatic pain who is being admitted for evaluation and treatment of dizziness induced by her hyperventilation secondary to her anxiety. She complained of chest pain, which was reproducible on exam. Cardiac enzymes were negative and she had no events on telemetry. Her dizziness improved with xanax. Cardiology was consulted and patient was noted to have diffuse ST-T changes on EKG. Echo was done without any evidence of cardiac etiology. On day of discharge, she was ambulating, eating/drink at baseline. Procedures/Imaging: Echo 04/25 no evidence of systolic, diastolic dysfunction CT head 04/24 no acute abnormalities CXR 04/24 no acute process Consultants: Cardiology Discharge Medications: Wellbutrin 50mg bid lexapro 20mg daily trazodone 100mg daily cyclobenzaprine 10mg po prn xanax 1mg po q6h tylenol 650mg po q6h prn naproxen 275mg po bid x 3 days Condition at discharge: Stable and improved Disposition: Discharge to home Follow up: PCP within 1 week Diet: Regular Activity: As tolerated Discharge Exam - Head Exam Head Exam: NORMAL INSPECTION - Eye Exam Eye Exam: EOMI, Normal appearance Pupil Exam: NORMAL ACCOMODATION - ENT Exam ENT Exam: Mucous Membranes Moist - Respiratory Exam Respiratory Exam: Wheezes - Cardiovascular Exam Cardiovascular Exam: REGULAR RHYTHM - GI/Abdominal Exam GI & Abdominal Exam: Normal Bowel Sounds - Rectal Exam Rectal Exam: Deferred - Extremities Exam Additional comments: ttp l le - Back Exam Back exam: absent: CVA tenderness (L), CVA tenderness (R) - Neurological Exam Neurological exam: Alert, CN II-XII Intact, Oriented x3 - Psychiatric Exam Psychiatric exam: Normal Affect - Skin Skin Exam: Normal Color, Warm Discharge Plan - Discharge Medications Prescriptions: Naproxen [Anaprox] 275 mg PO BID 3 Days - Follow Up Plan Condition: FAIR Disposition: HOME/ ROUTINE Instructions: How to Stop Smoking (DC), Heart Healthy Diet (DC), Cigarette Smoking and Your Health (GEN), Hypotension (DC), Near Syncope (ED), Back Pain ( GEN) Additional Instructions: 1. Follow up with cardiology o/p - Dr. Acosta 2. Follow up for pain o/p 3. Please take medications as Rx'd 4. If symptoms persist, please come back to the ED Referrals: PCP,NO [Primary Care Provider] -
== END 2017-04-25 19:49 | disposition home or self-care (01) ==
LOC: ED 15:58 → ERH 19:46 → 2RSO 21:19
PROVIDERS: ADMIT Internal Medicine; ATTEND Internal Medicine
DX: F41.9 Anxiety disorder, unspecified (principal); R06.4 Hyperventilation; R42 Dizziness and giddiness; R07.89 Other chest pain; R26.9 Unspecified abnormalities of gait and mobility; M54.30 Sciatica, unspecified side; F32.9 Major depressive disorder, single episode, unspecified; G47.00 Insomnia, unspecified; F17.210 Nicotine dependence, cigarettes, uncomplicated; R94.31 Abnormal electrocardiogram [ECG] [EKG]; Z85.048 Personal history of other malignant neoplasm of rectum, rectosigmoid junction, and anus; Z85.3 Personal history of malignant neoplasm of breast; Z85.89 Personal history of malignant neoplasm of other organs and systems; Z90.12 Acquired absence of left breast and nipple
CPT/HCPCS: 36415; 70450; 71010; 80053; 80324; 80345; 80346; 80349; 80353; 80358; 80361; 81001; 82550; 83615; 83690; 83735; 83880; 83992; 84439; 84443; 84484; 85025; 85378; 85610; 85730; 93005; 93306; 96361; 96372; 96374; 96375; 97116; 97162; 97530; 99285; G0378; G8978; G8979; J1644; J2270; J2405; J7040

== ENCOUNTER 2018-11-01 12:46 | Emergency (ER) | payer MEDICAID, MEDICARE ==
[2018-11-01 13:07] VITALS: BMI 28.7
[2018-11-01 13:14] VITALS: RESP 18; TEMP 98; O2SAT 96
[2018-11-01] MEDS ORDERED: Morphine 4 mg/ml ISec IM STA (13:29)
--- NOTE | 2018-11-01 13:33 | ED PDOC ---
Arrival/HPI - General Chief Complaint: Hip Pain Historian: Patient - History of Present Illness Narrative History of Present Illness (Text): 11/01/18 13:31 48 y/o female, pmh includingcancer, allergic to motrin and iodine but not allergic to toradol/advils, post menopausal, c/o left sided hip pain for the past 7 days with no fall or trauma. Patient describes pain as ache/stiff, soreness to where she has pain walking, no swelling, no numbness or tingling, no chest pain or shortness of breath, no rash, no other medical or psychological complaints. PMD: Dr. Molina Time/Duration: 1 week Symptom Onset: Gradual Symptom Course: Unchanged Activities at Onset: Light Context: Home Past Medical History - Provider Review Nursing Documentation Reviewed: Yes - Past History Past History: No Previous - Infectious Disease Hx of Infectious Diseases: None - Tetanus Immunization Tetanus Immunization: Unknown - Cardiac Hx Cardiac Disorders: No - Pulmonary Hx Respiratory Disorders: No - Neurological Hx Neurological Disorder: No - HEENT Hx HEENT Disorder: No - Renal Hx Renal Disorder: No - Endocrine/Metabolic Hx Endocrine Disorders: No - Hematological/Oncological Hx Blood Disorders: Yes Hx Blood Transfusions: No Hx Blood Transfusion Reaction: No Hx Cancer: Yes (breast, vaginal, rectal) - Integumentary Hx Dermatological Disorder: No - Musculoskeletal/Rheumatological Hx Musculoskeletal Disorders: Yes Other/Comment: L LEG PAIN - Gastrointestinal Hx Gastrointestinal Disorders: No - Genitourinary/Gynecological Hx Genitourinary Disorders: Yes Other/Comment: VAGINAL/RECTAL CA - Psychiatric Hx Psychophysiologic Disorder: Yes Hx Anxiety: Yes Hx Depression: Yes Hx Emotional Abuse: No Hx Physical Abuse: No Hx Substance Use: Yes (CANNABIS) - Surgical History Hx Appendectomy: Yes Hx Breast Biopsy: Yes (left breast mastectomy) Hx Mastectomy: Yes (L) Hx Orthopedic Surgery: Yes (L FOOT) Other/Comment: VAGINAL/RECTAL R/T CA - Anesthesia Hx Anesthesia: Yes - Suicidal Assessment Feels Threatened In Home Enviroment: No Family/Social History - Physician Review Nursing Documentation Reviewed: Yes Family/Social History: No Known Family HX Smoking Status: Heavy Smoker > 10 Cigarettes Daily Hx Alcohol Use: Yes (OCCASIONALLY) Frequency of alcohol use: Socially Hx Substance Use: Yes (CANNABIS) Substance used: MARIJUANA Hx Substance Use Treatment: No Allergies/Home Meds Allergies/Adverse Reactions: Allergies iodine Allergy (Verified 04/24/17 21:36) ITCHING ibuprofen [From Motrin] Adverse Reaction (Verified 04/24/17 21:36) VOMITING Home Medications: Home Meds Medication Instructions Recorded Confirmed Escitalopram [Lexapro] 20 mg DAILY 04/24/17 11/01/18 buPROPion [Wellbutrin] 200 mg PO DAILY 04/24/17 11/01/18 traZODone [Desyrel] 100 mg PO HS 04/24/17 11/01/18 ALPRAZolam [Xanax] 1 mg PO TID 11/01/18 11/01/18 Omeprazole Magnesium [Prilosec Otc] 1 tab PO DAILY 11/01/18 11/01/18 Review of Systems - Physician Review All systems were reviewed & negative as marked: Yes - Review of Systems Constitutional: absent: Fatigue, Fevers Eyes: absent: Vision Changes ENT: absent: Hearing Changes Respiratory: absent: SOB, Cough Cardiovascular: absent: Chest Pain Gastrointestinal: absent: Abdominal Pain, Diarrhea, Nausea, Vomiting Musculoskeletal: Arthralgias. absent: Back Pain, Neck Pain, Joint Swelling, Myalgias Skin: absent: Rash, Pruritis Neurological: absent: Headache, Dizziness Psychiatric: absent: Anxiety, Depression, Suicidal Ideation Physical Exam Vital Signs Reviewed: Yes Vital Signs Temp Pulse Resp BP Pulse Ox 11/01/18 13:13 98 F 88 18 113/69 96 Temperature: Afebrile Blood Pressure: Normal Pulse: Regular Respiratory Rate: Normal Appearance: Positive for: Well-Appearing, Non-Toxic Pain Distress: Severe Mental Status: Positive for: Alert and Oriented X 3 - Systems Exam Head: Present: Atraumatic, Normocephalic Pupils: Present: PERRL Extroacular Muscles: Present: EOMI Conjunctiva: Present: Normal Mouth: Present: Moist Mucous Membranes Neck: Present: Normal Range of Motion Respiratory/Chest: Present: Clear to Auscultation, Good Air Exchange. No: Respiratory Distress, Accessory Muscle Use Cardiovascular: Present: Regular Rate and Rhythm, Normal S1, S2. No: Murmurs Abdomen: No: Tenderness, Distention, Peritoneal Signs Back: Present: Normal Inspection Upper Extremity: Present: Normal Inspection, Normal ROM, NORMAL PULSES, Neurovascularly Intact, Capillary Refill < 2s. No: Cyanosis, Edema, Deformity Lower Extremity: Present: Normal ROM, Neurovascularly Intact, Capillary Refill < 2 s, Other (Lt. hip: +ttp on the lt. lateral hip bursa region with pain ag gravated by left lateral movement, sensation intact, motor 5/5, +radial pulse, capillary refill< 2 seconds, neurovascular intact. ). No: Deformity Neurological: Present: GCS=15, CN II-XII Intact, Speech Normal, Motor Func Grossly Intact, Gait Normal, Memory Normal Skin: No: Other (no skin swelling or bruising) Psychiatric: Present: Alert, Oriented x 3, Normal Insight, Normal Concentration Medical Decision Making ED Course and Treatment: 11/01/18 13:39 Impression: 48 y/o female c/o left sided hip pain for the past 7 days Plan: -- Toradol -- Morphine -- Xray of left hip -- Ultrasound of lower left extremity -- Reassess and disposition Prior Visits: Notes and results from previous visits were reviewed. 11/01/18 16:31 -Pt. stated that she is post menopausal -Lt. hip xray Negative study -LLE Venuous doppler: as per preliminary report, no acute DVT -Pt. stated that feels much better. -Discharge home with flexeril, acetaminophen, lidoderm, follow up with your own pmd and orthopedic within 2 days, return to the ER for any new or worsening signs or symptoms. - RAD Interpretation Radiology Orders: 11/01/18 13:29 HIP MIN 4V W/ PELVIS LT [RAD] Stat DUPLEX LOWER EXTRM VEIN LEFT [US] Stat -Lt. hip xray PROCEDURE: Left Hip and pelvis x-ray Radiographs. HISTORY: lt. hip pain COMPARISON: None. FINDINGS: BONES: Normal. No fracture. JOINTS: Normal. SOFT TISSUES: Normal. OTHER FINDINGS: None. IMPRESSION: Negative study -LLE Venuous doppler: as per preliminary report, no acute DVT School Guidance Counselor: Radiologist - PA / DECK ENGINEER / Resident Statement MD/DO has reviewed & agrees with the documentation as recorded. - Scribe Statement The provider has reviewed the documentation as recorded by the Meron Jeffrey All medical record entries made by the Scribe were at my direction and personally dictated by me. I have reviewed the chart and agree that the record accurately reflects my personal performance of the history, physical exam, medical decision making, and the department course for this patient. I have also personally directed, reviewed, and agree with the discharge instructions and disposition. Disposition/Present on Arrival - Present on Arrival Any Indicators Present on Arrival: No History of DVT/PE: No History of Uncontrolled Diabetes: No Urinary Catheter: No History of Decub. Ulcer: No History Surgical Site Infection Following: None - Disposition Have Diagnosis and Disposition been Completed?: Yes Diagnosis: Hip pain Disposition: HOME/ ROUTINE Disposition Time: 16:35 Patient Plan: Discharge Patient Problems: Current Active Problems Problem Status Onset Hip pain Acute Condition: IMPROVED Additional Instructions: -Discharge home with flexeril, acetaminophen, lidoderm, follow up with your own pmd and orthopedic within 2 days, return to the ER for any new or worsening signs or symptoms. Prescriptions: Acetaminophen [Tylenol 325mg tab] 2 tab PO QID PRN #30 tab PRN Reason: Other Cyclobenzaprine [Cyclobenzaprine HCl] 10 mg PO TID PRN #21 tab PRN Reason: Other Lidocaine 5% [Lidoderm] 1 patch TOP DAILY PRN #14 patch PRN Reason: Other Referrals: Pratibha Molina MD [Primary Care Provider] - Follow up with primary Benito Hayes III, MD [Medical Doctor] - Follow up with primary Forms: [employer] (Luxembourgish), WORK NOTE
--- NOTE | 2018-11-01 15:13 | RAD ---
PROCEDURE: Left Hip and pelvis x-ray Radiographs. HISTORY: lt. hip pain COMPARISON: None. FINDINGS: BONES: Normal. No fracture. JOINTS: Normal. SOFT TISSUES: Normal. OTHER FINDINGS: None. IMPRESSION: Negative study
[2018-11-01 15:50] VITALS: BP 104/68; PULSE 60
--- NOTE | 2018-11-02 21:42 | US ---
PROCEDURE: Left lower extremity venous US HISTORY: Leg pain and swelling. Evaluate for DVT. PHYSICIAN(S): Escobar Wiley MD. TECHNIQUE: Duplex sonography and color-flow Doppler with graded compression were used to evaluate the deep venous system of the left lower extremity. FINDINGS: The visualized deep venous system of the left lower extremity is sonographically normal and compressible. Normal wave forms and augmentation are seen. There is no sonographic evidence for deep venous thrombosis in the visualized segments of the left lower extremity. IMPRESSION: 1. No sonographic evidence for deep venous thrombosis in the visualized segments of the left lower extremity.
== END 2018-11-01 16:44 | disposition home or self-care (01) ==
LOC: ED 12:46
DX: M25.552 Pain in left hip (principal); F17.210 Nicotine dependence, cigarettes, uncomplicated
CPT/HCPCS: 73502; 93971; 96372; 99285; J1885; J2270

== ENCOUNTER 2019-01-23 11:27 | Day surgery (SDC) | payer MEDICAID ==
[2019-01-17 15:21] VITALS: BMI 28.3
[2019-01-23] MEDS ORDERED: Propofol 10 mg/ml Inj (20 ML) ONE (13:34)
[2019-01-23] MEDS ORDERED: Lidocaine 1% Inj (20ml) ONE (13:34)
[2019-01-23] MEDS ORDERED: Sodium Chloride 0.9% 1,000 ML IV SCH (14:00)
[2019-01-23 14:06] VITALS: TEMP 98
[2019-01-23 15:20] VITALS: BP 109/53; PULSE 52; RESP 16; O2SAT 98
== END 2019-01-23 16:00 | disposition home or self-care (01) ==
LOC: ENDO 11:27
PROVIDERS: ATTEND Internal Medicine Gastroenterology
DX: R19.4 Change in bowel habit (principal); K64.1 Second degree hemorrhoids; Z85.048 Personal history of other malignant neoplasm of rectum, rectosigmoid junction, and anus
CPT/HCPCS: 45378; J2704; J7030